=== PATIENT | male | born 1970 | race Caucasian/White ===

== ENCOUNTER 2023-11-22 21:03 | Emergency (ER) | payer OTHER, SELFPAY ==
[2023-11-22 21:09] VITALS: BP 131/86; PULSE 73; RESP 20; TEMP 36.6; O2SAT 97; BMI 34.4
--- NOTE | 2023-11-22 23:47 | ED.GENADULT ---
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 Denies any loss of function, numbness. Unsure of last tetanus, does not wish to be updated. Related Data Home Medications Medication Instructions Recorded Confirmed citalopram 40 mg tablet (Celexa) 40 mg PO DAILY 11/22/23 11/22/23 omeprazole 40 mg capsule,delayed 40 mg PO DAILY 11/22/23 11/22/23 release Allergies Allergy/AdvReac Type Severity Reaction Status Date / Time No Known Drug Allergies Allergy Verified 11/22/23 21:09 [facility] Social History Smoking Status: Never smoker Do you use any of these nicotine containing products: None Second hand tobacco smoke exposure: No How often do you have a drink containing alcohol: never AUDIT-C Alcohol total score: 0 Non-prescribed substance use: denies use service: No Exam Narrative: Exam Narrative: Vital signs reviewed In general, alert, well-appearing and cooperative middle-aged male. Extremities: Examination of the left wrist shows laceration which extends across the volar surface of the wrist, extends into the subcutaneous fat. No visible tendon exposure, bleeding controlled. He has full flexion at the wrist, MCP, PIP and the IP joints. Distal CMS is intact. Laceration is approximately 6 cm in length. Const: Vital Signs, click to edit/add: Vital Signs - 24 hr 11/22/23 21:09 Temperature 98 F Pulse Rate [Left P ulse Oximeter] 73 Respiratory Rate 20 Blood Pressure [Ri ght Upper Arm] 131/86 Pulse Oximetry 97 Oxygen Delivery Me thod Room Air Documenting provider has reviewed patient's vital signs: yes Course Course ED Course: Procedure note: Wound was anesthetized using lidocaine with epinephrine, cleaned and explored. No evidence of tendon laceration or injury to deeper structures. The wound was then closed using superficial simple interrupted sutures with 5 0 nylon. A total of 14 stitches were placed. He tolerated this well without immediate complication. A dressing is applied by the electrical engineering technician. Again, patient declines tetanus. Recommend suture removal in about 10 days. Ointment such as Vaseline a couple of times a day while healing. Return at any time for signs of infection. Vital Signs Vital signs: Initial Vital Signs Temperature 98 F 11/22/23 21:09 Temperature Source Temporal Artery Scan 11/22/23 21:09 Pulse Rate 73 11/22/23 21:09 Pulse Rhythm Regular 11/22/23 21:09 Pulse Strength 3+ Normal 11/22/23 21:09 Respiratory Rate 20 11/22/23 21:09 Blood Pressure 131/86 11/22/23 21:09 Blood Pressure Mean 101 11/22/23 21:09 Pulse Oximetry 97 11/22/23 21:09 Oxygen Delivery Method Room Air 11/22/23 21:09 Vital Signs Temperature 98 F 11/22/23 21:09 Pulse Rate 73 11/22/23 21:09 Respiratory Rate 20 11/22/23 21:09 Blood Pressure 131/86 11/22/23 21:09 Pulse Oximetry 97 11/22/23 21:09 Oxygen Delivery Method Room Air 11/22/23 21:09 Temperature 98 F 11/22/23 21:09 Pulse Rate 73 11/22/23 21:09 Respiratory Rate 20 11/22/23 21:09 Blood Pressure 131/86 11/22/23 21:09 Pulse Oximetry 97 11/22/23 21:09 Oxygen Delivery Method Room Air 11/22/23 21:09 Discharge Plan Discharge Clinical Impression: Laceration of left wrist Patient Disposition: Home, Self-Care Condition: Improved Instructions: Laceration (DC) Additional Instructions: Suture removal in 7-10 days with primary care doctor or urgent care. Return for signs of infection such as increased redness, increased pain, draining pus, new warmth, etc. Keep an ointment such as Vaseline on the wound while it heals. Keep dressing in place for first 24 hours. Then can wash the area daily with warm soapy water. Prescriptions: No Action citalopram [Celexa] 40 mg tablet 40 mg PO DAILY omeprazole 40 mg capsule,delayed release(DR/EC) 40 mg PO DAILY Stand Alone [facility]
== END 2023-11-22 22:13 | disposition home or self-care (01) ==
LOC: ED 22:08
PROVIDERS: Emergency Provider Emergency Medicine
DX: S61.512A Laceration without foreign body of left wrist, initial encounter (principal); W26.9XXA Contact with unspecified sharp object(s), initial encounter
CPT/HCPCS: 12001; 99283; 99284